=== PATIENT | female | born 1945 | race Caucasian/White ===

== ENCOUNTER 2019-02-16 13:53 | Inpatient (IN) ==
[2019-02-16] MEDS ORDERED: SALINE LOCK IV FLUID XX ONE (13:55)
[2019-02-16] MEDS ORDERED: TYLENOL PO PRN (13:55)
[2019-02-16] MEDS ORDERED: VANCOMYCIN IV PER PHARMACY MISC SCH (14:00)
[2019-02-16] MEDS ORDERED: PRILOSEC PO ONE (14:42)
--- NOTE | 2019-02-16 14:58 | Diag Imaging Result Doc PS360 ---
CHEST-2 VIEWS - 02/16/2019 INDICATION: Pneumonia COMPARISON: 02/15/2019 FINDINGS: Stable dense infiltrate in the lingula and both lower lobes. Stable hyperexpanded lungs indicating COPD. No new infiltrates. Heart size is normal. No pneumothorax or pleural effusion. IMPRESSION: No change from prior. Electronically signed by Zan Anderson 02/16/2019 2:55 PM
--- NOTE | 2019-02-16 15:20 | HISTORY AND PHYSICAL ---
PRIMARY CARE PHYSICIAN: Dr. Cheo Correa. CHIEF COMPLAINT: Cough, congestion, and shortness of breath. HISTORY OF PRESENT ILLNESS: A 73-year-old white female with a complicated past medical history presents for evaluation of the above-mentioned symptoms. Current history of present illness began on 12/14/2018. At that time, patient presented to my office for evaluation and management of cough and congestion. The patient complained of a sore throat, cough productive of a purulent sputum, and purulent/bloody nasal discharge. She had a significant exposure to a friend with influenza type A. Full evaluation was pursued. White blood cell count was noted to be within normal limits, but with a left shift. Influenza screen returned negative. Because of the patient's immunocompromised state, patient was treated with Mucinex DM, Claritin, Tylenol, and doxycycline therapy. Despite this, patient continued to experience symptoms. On 01/05, a chest x-ray was performed which revealed no evidence of acute disease. On 01/12, a CT scan was performed which revealed questionable pneumonia in the left lower lobe and left upper lobe. The patient was placed on Augmentin therapy. Pulmonary consultation with Dr. Poole was arranged. The patient was first seen on 12/20. With review of her symptoms and history, question was raised whether the fluctuating infiltrates were secondary to re-soiling the airway through aspiration or if she had a drug resistant pathogen. She also was noted to have a positive PPD. Sputum cultures were performed. These returned positive for normal meeta only. Repeat evaluation by Dr. Poole on 01/27 revealed no evidence of improvement. Chest x-ray on 01/31 suggested left basilar infiltrates. The patient was taken for bronchoscopy on 02/01. Cultures ultimately grew methicillin sensitive Staph aureus. The patient was treated with dicloxacillin therapy. The patient was re-evaluated by Dr. Poole today. Unfortunately, patient had demonstrated further progression of her illness. Chest x-ray demonstrated worsening pneumonia. She was noted to be hypoxic with an oxygen saturation at rest of 88%. Because of progressive pneumonia despite adequate antibiotic intervention, patient will be admitted to the hospital for full evaluation and management. Of note, patient continues to have a cough productive of a purulent sputum. Since starting dicloxacillin therapy, patient has noted the color of the sputum to change from purulent to a white sputum. She has had intermittent palpitations which she describes is consistent with atrial fibrillation. These have been self limiting. She also notes increasing dyspnea on exertion and congestion. She denies any sick contacts to her knowledge. She denies any fevers or chills. PAST MEDICAL HISTORY: 1. History of acute renal failure in 2010 secondary to nonsteroid anti-inflammatory agents and dehydration. Patient has achieved a full recovery. 2. History of an arterial thrombus of the right lower extremity in 2000 status post embolectomy by Dr. [place]. 3. 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 4. History of right rotator cuff repair by [*]in 2008. 5. Paroxysmal atrial fibrillation. 6. Multiple nevi and seborrheic keratoses. 7. History of Clostridium difficile colitis diagnosed in 2011. 8. Reflux disease. 9. Hyperlipidemia. 10. Iron deficiency anemia. 11. Long-term anticoagulation. 12. Left lower extremity neuropathy, currently untreated. 13. Obstructive sleep apnea treated with CPAP therapy. 14. Osteoarthritis. 15. Overweight. 16. Postmenopausal state. 17. History of a right frontal lobe stroke in 1988. 18. Ulcerative colitis treated with immunosuppressants. 19. Vitamin B12 deficiency. CURRENT MEDICATIONS: 1. Aspirin 81 mg daily. 2. Atorvastatin 40 mg at bedtime. 3. Coenzyme Q10 100 mg daily. 4. Iron sulfate 325 mg twice weekly. 5. Imuran 100 mg daily. 6. Mesalamine 1.2 g 2 tablets daily. 7. Sotalol 120 mg twice daily. 8. Vitamin D3 1000 units daily. 9. Coumadin 5 mg daily except 7.5 mg on Wednesdays. 10. Vitamin B12 1000 mcg daily. ALLERGIES: Patient states she is allergic to tuberculin. SOCIAL HISTORY: Patient previously smoked 1-1/2 packs per day for 26 years. She stopped in 1989. She occasionally uses alcohol. She denies illicit drug use. 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. She exercises intermittently. FAMILY HISTORY: Patient's father passed at age 74 secondary to complications of an acute myocardial infarction. Patient's mother passed at age 90 secondary to complications of Alzheimer's dementia. REVIEW OF SYSTEMS: A 12 point review of systems was performed. Pertinent positives and negatives are noted in history present illness. PHYSICAL EXAMINATION: VITAL SIGNS: Temperature 97.6 degrees, heart rate 73, respirations 18, and blood pressure is 139/69. GENERAL: Well nourished, well developed in no acute distress. HEENT: Normocephalic, atraumatic. Pupils equal, round, react to light. Extraocular muscles intact. Sclerae anicteric. Derma conjunctivae. Oral and nasopharynx clear without exudate. NECK: Supple. No lymphadenopathy. No thyromegaly. No bruits auscultated. CARDIOVASCULAR: Regular rate and rhythm. No significant murmurs, rubs, or gallops. PULMONARY: Crackles at bilateral bases with an occasional wheeze. Adequate air movement. ABDOMEN: Soft, nontender, and nondistended. Positive bowel sounds. EXTREMITIES: Moves all extremities well. No significant clubbing, cyanosis, or edema. NEUROLOGIC: Cranial nerves 2-12 grossly intact. Motor and sensory grossly intact. PSYCHOLOGIC: Examination is appropriate. LABORATORY DATA: Pending at the time of admission. ASSESSMENT AND PLAN: A 73-year-old white female with a very complicated past medical history presents for evaluation of persistent pneumonia. In the setting of an immunocompromised host and adequate outpatient antibiotic intervention, I feel inpatient treatment is most appropriate. We will aggressively intervene with the assistance of a pulmonary consultation. PLAN: 1. Admit to General Medicine. 2. Persistent pneumonia in immunocompromise host-As described above, patient is currently treated with Imuran for her underlying ulcerative colitis. Bronchoscopy cultures grew methicillin Staph aureus. Despite treatment with dicloxacillin therapy, patient has had progression of her disease. We will check sputum cultures and blood cultures. The patient will be placed on broad-spectrum antibiotics in the form of Zosyn and vancomycin therapy. We will encourage aspiration precautions and incentive spirometry. We will start IV steroids and bronchodilators. We will follow patient's clinical course very closely and adjust as necessary. 3. Hypoxia-This likely is a consequence of her underlying pneumonia. We will treat as described above. I am also concerned that bronchospasm may be contributing. We will add steroids and bronchodilators as noted. As above, we will encourage incentive spirometry and aspiration precautions. 4. Ulcerative colitis-Patient is treated with Imuran and mesalamine therapy. We will continue each of these. As above, we will remain aware that Imuran is likely contributing to her immunocompromised state. 5. History of C. Diff colitis-We will remain aware in the setting of antibiotic intervention. At this point, the benefits of antibiotics outweigh the risk. 6. Reflux disease-We will initiate omeprazole therapy. As above, we will encourage aspiration precautions. Certainly chronic aspiration could be contributing to her condition. 7. Hyperlipidemia - We will continue atorvastatin therapy. 8. Long-term anticoagulation-This is secondary to history of arterial thrombus and paroxysmal atrial fibrillation. We will continue Coumadin therapy. 9. Atrial fibrillation-We will follow patient on telemetry. 10. Fluid, electrolytes, and nutrition. We will monitor electrolytes. Saline lock IV. Cardiac prudent diet. 11. Prophylaxis. Patient will be continued on Coumadin therapy. cc: Cheo Correa MD
[2019-02-16] MEDS: ZOSYN 3.375 GM in NS 50 ML IV SCH ×2 (15:53→21:21)
[2019-02-16] MEDS: SOLU-MEDROL IV SCH ×2 (15:54→23:41)
[2019-02-16] MEDS: ATROVENT NEB INH SCH ×3 (16:09→22:39)
[2019-02-16] MEDS: ALBUTEROL NEB INH SCH ×3 (16:10→22:39)
[2019-02-16 18:38] LABS: BASO# 0.05 X1000 (0.0-0.2); BASO% 0.4 % (0.0-0.8); EOS# 0.32 X1000 (0.0-0.7); EOS% 2.9 % (0.0-10.0); HEMATOCRIT 34.9 % (37.0-47.0); HEMOGLOBIN 10.8 g/dL (12.0-16.0); IMM GRAN# 0.06 X1000 (0.0-0.04); IMM GRAN% 0.5 % (0.0-0.5); LYMPH% 3.6 % (20.5-51.1); MCH 31.7 PG (27-31); MCHC 30.9 g/dL (33-37); MCV 102.3 FL (81-99); MONO# 0.27 X1000 (0.11-0.59); MONO% 2.4 % (1.7-9.3); MPV 8.6 FL (7.4-10.4); NEUT# 10.11 X1000 (1.4-6.5); NEUT% 90.2 % (42.2-75.2); PLT 598 X1000 (130-400); RBC 3.41 XMIL (4.2-5.4); RDW 13.5 % (11.5-14.5); WBC 11.21 X1000 (4.8-10.8)
[2019-02-16 18:47] LABS: INR 2.63; PROTIME 28.8 Seconds (11.0-16.0)
[2019-02-16 18:49] LABS: AGAP 12; ALBUMIN 3.2 g/dL (3.5-5.0); ALKALINE PHOSPHATASE 88 U/L (32-104); BUN 14 mg/dL (8-22); CALCIUM 9.2 mg/dL (8.8-10.2); CHLORIDE 99 mmol/L (98-107); COSMO 277; CREATININE 0.9 mg/dL (0.5-0.9); ESTIMATED GFR > 60; GLUCOSE 154 mg/dL (70-104); GOT 41 U/L (10-30); GPT 44 U/L (10-36); POTASSIUM 4.2 mmol/L (3.5-5.1); SODIUM 137 mmol/L (136-145); TCO2 26 mmol/L (25-35); TOTAL BILIRUBIN 0.29 mg/dL (0.20-1.00); TOTAL PROTEIN 6.5 g/dL (6.3-8.3)
[2019-02-16 19:39] LABS: EOS 7 % (1-10); LARGE PLATELETS OCCASIONAL; LYMPHS 3 % (21-51); MONO 1 % (1-9); SEGS 89 % (42-75)
[2019-02-16 19:47] LABS: IRON SATURATION 17 %; TIBC 197 ug/dL; TOTAL IRON 33 ug/dL (49-151); UNBOUND IRON 164 ug/dL (112-346)
[2019-02-16] MEDS ORDERED: VANCOMYCIN 1.6 GM in NS 250 ML IV ONE (20:00)
[2019-02-16 20:15] LABS: FERRITIN 1713 ng/mL (13-150)
[2019-02-16] MEDS: BIDEX PO SCH (21:20)
[2019-02-16] MEDS: BETAPACE PO SCH (21:20)
[2019-02-16] MEDS: LIPITOR PO SCH (21:20)
[2019-02-16] MEDS: COUMADIN PO SCH (21:40)
[2019-02-17] MEDS: ZOSYN 3.375 GM in NS 50 ML IV SCH ×4 (02:43→20:22)
[2019-02-17] MEDS: ATROVENT NEB INH SCH ×6 (03:14→23:30)
[2019-02-17] MEDS: ALBUTEROL NEB INH SCH ×6 (03:14→23:30)
[2019-02-17] MEDS: PRILOSEC PO SCH (06:34)
[2019-02-17] MEDS: SOLU-MEDROL IV SCH ×3 (06:35→23:48)
[2019-02-17] MEDS: IMURAN PO SCH (09:17)
[2019-02-17] MEDS: ASPIRIN EC PO SCH (09:18)
[2019-02-17] MEDS: VITAMIN B-12 PO SCH (09:18)
[2019-02-17] MEDS: BETAPACE PO SCH ×2 (09:18→20:56)
[2019-02-17] MEDS: BIDEX PO SCH ×2 (09:18→20:57)
[2019-02-17] MEDS: VITAMIN D PO SCH (09:18)
[2019-02-17] MEDS: LIALDA PO SCH (09:22)
[2019-02-17] MEDS: HUMALOG SUBQ SCH ×2 (15:21→23:16)
[2019-02-17] MEDS: LIPITOR PO SCH (20:56)
[2019-02-17] MEDS: VANCOMYCIN 1.2 GM in NS 250 ML IV SCH (20:56)
[2019-02-17] MEDS ORDERED: COUMADIN PO SCH (21:00)
--- NOTE | 2019-02-18 00:53 | PROGRESS NOTE ---
DATE: 02/17/2019 SUBJECTIVE: Over the course of the first 24 hours, patient has achieved stabilization of her condition. She continues to have cough, congestion, and shortness of breath, although this is largely unchanged from yesterday. Thus far, she has tolerated Solu-Medrol, Zosyn, vancomycin, and bronchodilators. She denies fevers, chills, nausea and vomiting. OBJECTIVE: Vital signs: T-max 98.2 degrees, heart rate 54 to 65, respirations 18 to 29, blood pressure 108 to 129/38 to 60. General: Well nourished, well developed, no acute distress. Cardiovascular: Regular rate and rhythm. No significant murmurs, rubs, or gallops. Pulmonary: Minimally crackles at bilateral bases. Adequate air movement. Abdomen: Soft, nontender, nondistended. Positive bowel sounds. Extremities: Moves all extremities well. No significant clubbing, cyanosis, or edema. Dermatologic: Reveals no evidence of rash. LABORATORY DATA: White blood cell count 11.21 hemoglobin 10.8, hematocrit 34.9, platelet count 598,000. PT 28.8, INR is 2.63. Sodium 137, potassium 4.2, chloride 99, bicarb 26, BUN 14, creatinine 0.9. Glucose 154, calcium 9.2, total bilirubin 0.29, total protein 6.5, albumin 3.2, alkaline phosphatase 88, AST 41, ALT 44, total iron 33, TIBC 197, ferritin 1713. B12 greater than 2000. Folate 17.1. Sedimentation rate 121. CRP 46.82. ASSESSMENT AND PLAN: 1. Persistent pneumonia in an immunocompromised host -- previous bronchoscopy culture returned positive for methicillin-sensitive Staphylococcus aureus. Laboratory data, thus far, has suggested significant elevation in her sedimentation rate and CRP, suggesting the possibility of an underlying inflammatory process. For now, we will continue broad-spectrum antibiotics. We will continue IV steroids and bronchodilators. We will follow blood and sputum cultures. I appreciate Dr. Poole's consultation. 2. Hypoxia -- we will continue patient on oxygen per protocol. 3. Ulcerative colitis -- patient is treated with Imuran and mesalamine therapy. We will remain aware. Imuran is creating an immunocompromised state. 4. History of Clostridium difficile colitis -- we will remain aware in the setting of antibiotic intervention. 5. Reflux disease -- omeprazole was added yesterday. We will continue aspiration precautions. 6. Hyperlipidemia -- we will continue patient on atorvastatin therapy. 7. Anticoagulation -- we will continue patient on Coumadin therapy. 8. Atrial fibrillation -- we will follow patient with telemetry. 9. Disposition -- at this point, patient continues to require alf care in a hospital setting. We will plan discharge home once appropriate. cc: Cheo Correa MD
--- NOTE | 2019-02-18 01:23 | PULMONOLOGY CONSULTATION ---
DATE: 02/17/2019 REASON FOR CONSULTATION: Pneumonia. HISTORY OF PRESENT ILLNESS: Ms Dye is a 73-year-old white female with history of ulcerative colitis who is on chronic immunosuppression. The patient has had difficulty with fluctuating pulmonary infiltrates. The patient was evaluated in my clinic and did undergo a bronchoscopy which revealed diffuse cobblestoning of the trachea and bronchial tree. No biopsies were performed due to chronic anticoagulation. Subsequent cultures revealed methicillin-sensitive Staphylococcus aureus and she was initiated on dicloxacillin. Despite a week's course of antibiotics, her chest x-ray appeared worse. She was hypoxemic on presentation. She has increased cough with increased sputum production. She reports she has been taking her medications. She has noted nocturnal reflux to the point that it woke her up in the evening. She has previously used a wedge for reflux, but no longer uses it due to back pain. She does attempt to sleep on 2 pillows. She does eat small meals at supper and she does eat early, but continues to reflux. PAST MEDICAL HISTORY: 1. Ulcerative colitis. 2. History of C difficile colitis. 3. Atrial fibrillation. 4. History of arterial thrombosis requiring embolectomy. 5. History of gastroesophageal reflux disease. 6. History of C difficile colitis. 7. Obstructive sleep apnea. 8. History of stroke. SOCIAL HISTORY: The patient has a 50 pack-year history for tobacco. She has not smoked for several years. No alcohol use. 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 REVIEW OF SYSTEMS: As noted in the HPI. PHYSICAL EXAMINATION: General: Reveals a well-developed, well-nourished female who appears comfortable and in no distress. Vital signs: She has been afebrile during this hospitalization. BP 118/48, heart rate 62, respiratory rate 20, oxygen saturation 91% on 2 L per nasal cannula. HEENT: Pupils are equal and reactive. Oropharynx appears clear. Neck: Supple. Chest: Reveals coarse rhonchi predominantly in the lung bases. Cardiac: S1, S2. Abdomen: Soft. Extremities: Without edema. LABORATORIES: Sputum culture is currently growing normal meeta. Chest x-ray reveals dense bibasilar infiltrates. White blood count 11.21, hemoglobin 10.8. Sedimentation rate 122. IMPRESSION: A 73-year-old with immunosuppression, worsening bilateral infiltrates, acute hypoxemic respiratory failure, gastroesophageal reflux, with methicillin-sensitive Staphylococcus aureus identified on bronchoscopy. The patient radiographically appears worse than she did prior to her bronchoscopy and the initiation of antibiotics. With her history, I suspect that she is having some esophageal dysfunction and likely has had an aspiration event. I suspect this sedimentation rate is related to her severe bilateral pneumonia, although other etiologies will be entertained if it does not improve as expected. At this juncture, would utilize broad-spectrum antibiotics. I would like to also pursue a modified barium swallow. I do not have a strong belief that she will have direct aspiration, but I would like to evaluate her swallowing mechanism and her esophagus at the same time. RECOMMENDATIONS: 1. Continue broad-spectrum antibiotics. 2. Continue bronchial hygiene. 3. Continue reflux precautions. 4. Modified barium swallow. 5. Additional recommendations pending hospital course. cc: MD Cheo Allen MD
[2019-02-18] MEDS: ZOSYN 3.375 GM in NS 50 ML IV SCH ×4 (01:28→20:23)
[2019-02-18] MEDS: ALBUTEROL NEB INH SCH ×6 (03:29→23:02)
[2019-02-18] MEDS: ATROVENT NEB INH SCH ×6 (03:29→23:02)
[2019-02-18 05:32] LABS: INR 1.85; PROTIME 21.7 Seconds (11.0-16.0)
[2019-02-18] MEDS: SOLU-MEDROL IV SCH ×3 (06:04→22:53)
[2019-02-18] MEDS: PRILOSEC PO SCH (06:05)
--- NOTE | 2019-02-18 11:20 | Diag Imaging Result Doc PS360 ---
EXAM: BA SWALLOW W/VIDEO SPEECH THER INDICATION: aspiration TECHNIQUE: COMPARISON: None. FINDINGS: Upon swallowing thin liquid and pudding consistency barium, there was an extrinsic filling defect at the posterior aspect of the upper esophagus consistent with cricopharyngeus spasm. No aspiration or airway penetration is appreciated. There were a few mild tertiary contractions on limited images of the distal esophagus suggesting mild distal esophageal dysmotility. IMPRESSION: 1.Cricopharyngeus achalasia. 2.Minimal distal esophageal tertiary contractions suggesting very mild distal dysmotility. Electronically signed by Russ Davidson 02/18/2019 11:18 AM
[2019-02-18] MEDS: HUMALOG SUBQ SCH ×3 (11:50→21:53)
[2019-02-18] MEDS: ASPIRIN EC PO SCH (15:26)
[2019-02-18] MEDS: BIDEX PO SCH ×2 (15:27→20:23)
[2019-02-18] MEDS: BETAPACE PO SCH ×2 (15:27→20:23)
[2019-02-18] MEDS: FERROUS SULFATE PO SCH (15:28)
[2019-02-18] MEDS: COENZYME Q10 PO SCH (15:28)
[2019-02-18] MEDS: IMURAN PO SCH (15:29)
[2019-02-18] MEDS: LIALDA PO SCH (15:29)
[2019-02-18] MEDS: VITAMIN B-12 PO SCH (15:29)
[2019-02-18] MEDS: VITAMIN D PO SCH (15:30)
--- NOTE | 2019-02-18 20:04 | PROGRESS NOTE ---
DATE: 02/18/2019 SUBJECTIVE: Upon my arrival this morning, overall patient was feeling modestly improved. She noted decreasing shortness of breath, cough, and congestion. Through the day, patient states she did reasonably well. She was noted to have a decrease in oxygen saturation. Oxygen therapy was resumed. She continues to feel better than admission. She continues to have some fatigue as well as cough. Modified barium swallow was performed today revealing cricopharyngeal achalasia, minimal distal esophageal tertiary contractions suggesting very mild distal dysmotility. OBJECTIVE: Vital signs: T-max 98.6 degrees, heart rate 51 to 86, respirations 16-18, blood pressure 111-143/50-60. General: Well nourished, well developed, no acute distress. Cardiovascular: Regular rate and rhythm. No significant murmurs, rubs, or gallops. Pulmonary: Minimal crackles at bilateral bases. Adequate air movement. Abdomen: Soft, nontender, nondistended. Positive bowel sounds. Extremities: Moves all extremities well. No significant clubbing, cyanosis, or edema. Dermatologic: Evaluation reveals no evidence of rash. LABORATORY DATA: PT 21.7. INR is 1.85. ASSESSMENT AND PLAN: 1. Persistent pneumonia in an immunocompromised host--Previous bronchoscopy culture returned positive for methicillin-sensitive Staphylococcus aureus. Current sputum cultures are negative. In the setting of cricopharyngeal achalasia and esophageal dysmotility, aspiration pneumonia is high on the differential. Additionally, with an elevated sedimentation rate and CRP, the possibility of an underlying autoimmune/inflammatory process is to be considered. We will continue broad-spectrum antibiotics, IV steroids, and bronchodilators. We will encourage incentive spirometry. I appreciate Dr. Poole's consultation. 2. Cricopharyngeal achalasia/minimal distal esophageal tertiary contractions suggesting mild distal dysmotility--At this point, we will continue aspiration precautions and a proton pump inhibitor. We will consider whether Gastroenterology consultation is appropriate as an outpatient. 3. Hypoxia--We will continue patient on oxygen per protocol. 4. Ulcerative colitis--Because patient is treated with Imuran and mesalamine therapy, she is considered an immunocompromised host. We will treat underlying infection aggressively. Ulcerative colitis symptoms are stable. 5. History of Clostridium difficile colitis--We will remain aware. In the setting of broad- spectrum antibiotics. 6. Reflux disease--We will continue omeprazole therapy. 7. Hyperlipidemia--We will continue patient on atorvastatin therapy. 8. Anticoagulation--INR is slightly subtherapeutic today. We will continue Coumadin for now. We will consider adjusting medications depending on future INR evaluations. 9. Atrial fibrillation--We will continue patient on telemetry. She is rate controlled. 10. Disposition--At this point, patient continues to require nursing home care in the hospital setting. We will plan discharge home once appropriate. cc: Cheo Correa MD
[2019-02-18] MEDS: VANCOMYCIN 1.2 GM in NS 250 ML IV SCH (20:23)
[2019-02-18] MEDS: COUMADIN PO SCH (20:23)
[2019-02-18] MEDS: LIPITOR PO SCH (20:24)
--- NOTE | 2019-02-18 21:11 | PULMONOLOGY PROGRESS NOTE ---
DATE: 02/18/2019 SUBJECTIVE: The patient is awake and alert. She reports she feels better today. Her cough and sputum production have declined. OBJECTIVE: Vital Signs: The patient has been afebrile for the last 24 hours. Blood pressure 123/60, heart rate 54, respiratory rate 18, oxygen saturation 96% on 2 L per nasal cannula. HEENT: Pupils are equal and reactive. Oropharynx appears clear. Neck: Supple. Chest: Crackles in both lung bases. Cardiac: S1, S2. Abdomen: Soft, with good bowel sounds present. LABORATORIES: Modified barium swallow reveals cricopharyngeal achalasia. Microbiology reveals no new data. IMPRESSION: A 73-year-old with: 1. Mild acute hypoxemic respiratory failure. 2. Bibasilar pneumonia, most consistent with aspiration. The patient has nocturnal reflux symptoms. 3. Cricopharyngeal achalasia with a globus sensation while eating. PLAN: 1. Continue current antibiotic regimen 2. Continue bronchial hygiene. 3. Continue safe swallowing practices. 4. Anticipate the need for outpatient GI evaluation for her cricopharyngeal achalasia. 5. PA/LAT CXR on 02/20 cc: MD Cheo Allen MD MTDKenneth
[2019-02-19] MEDS: ZOSYN 3.375 GM in NS 50 ML IV SCH ×4 (01:17→21:21)
[2019-02-19] MEDS: ALBUTEROL NEB INH SCH ×6 (03:30→23:40)
[2019-02-19] MEDS: ATROVENT NEB INH SCH ×6 (03:30→23:40)
[2019-02-19 05:52] LABS: INR 1.62; PROTIME 19.6 Seconds (11.0-16.0)
[2019-02-19] MEDS: HUMALOG SUBQ SCH ×3 (06:00→21:29)
[2019-02-19] MEDS: PRILOSEC PO SCH (06:05)
[2019-02-19] MEDS: SOLU-MEDROL IV SCH ×2 (06:05→16:16)
[2019-02-19] MEDS: BETAPACE PO SCH ×2 (09:15→21:21)
[2019-02-19] MEDS: VITAMIN B-12 PO SCH (09:15)
[2019-02-19] MEDS: IMURAN PO SCH (09:15)
[2019-02-19] MEDS: ASPIRIN EC PO SCH (09:15)
[2019-02-19] MEDS: LIALDA PO SCH (09:16)
[2019-02-19] MEDS: BIDEX PO SCH ×2 (09:16→21:21)
[2019-02-19] MEDS: VITAMIN D PO SCH (09:26)
--- NOTE | 2019-02-19 17:38 | PROGRESS NOTE ---
DATE: 02/19/2019 SUBJECTIVE: Upon arrival this morning, patient states overall she was feeling reasonably well. She did require oxygen therapy to be resumed to maintain oxygen saturations above 90%. P.o. intake remains adequate. She continues to have some cough and congestion, although this is improving. Throughout the day, patient continued to do reasonably well. Upon arrival this evening, patient continued to require oxygen supplementation. She was eating dinner in bed. She denied any fevers, chills, nausea, vomiting, or chest discomfort. OBJECTIVE: T-max 98.5 degrees, heart rate 49 to 62, respirations 14 to 17, blood pressure 81 to 136 over 48 to 66.General: Well nourished, well developed, in no acute distress. Cardiovascular: Regular rate and rhythm. No significant murmurs, rubs, or gallops. Pulmonary: Minimal crackles at bilateral bases. Adequate air movement. Abdomen: Soft, nontender, nondistended. Positive bowel sounds. Extremities: Moves all extremities well. No significant clubbing, cyanosis, or edema. Dermatologic: Evaluation reveals no evidence of rash. LABORATORY DATA: PT 19.6, INR is 1.62. ASSESSMENT AND PLAN: 1. Persistent pneumonia in an immunocompromised host-previous bronchoscopy culture returned positive for methicillin sensitive staph aureus. Patient failed outpatient management. Upon admission, sputum cultures were performed. These have returned with only normal meeta. In the setting of cricopharyngeal achalasia and esophageal dysmotility, I am concerned this may also represent an underlying aspiration. We will continue patient on broad-spectrum antibiotics including Zosyn and vancomycin therapy. We will continue IV steroids and bronchodilators. We will encourage incentive spirometry and aspiration precautions. We will follow patient's clinical course closely. We will check a chest x-ray in the a.m. 2. Cricopharyngeal achalasia/minimal distal esophageal tertiary contractions suggesting mild distal dysmotility-this likely is contributing, if it is not the primary source of patient's persistent pneumonia. We will continue aspiration precautions. As an outpatient, patient likely will need gastroenterology consultation and possible lower esophageal dilation. 3. Hypoxemia-we will continue patient on oxygen per protocol. We will treat persistent/recurrent pneumonia as described above. 4. Ulcerative colitis-symptoms are controlled with Imuran and mesalamine therapy. We will remain aware. This does place the patient in immunocompromised state. We will continue aggressive management as above. 5. History of Clostridium difficile colitis-we will remain aware in the setting of broad-spectrum antibiotics. She currently has no GI symptoms. 6. Reflux disease-we will continue omeprazole therapy. 7. Hyperlipidemia-we will continue patient on atorvastatin therapy. 8. Anticoagulation-patient's INR is slightly subtherapeutic. We will adjust Coumadin dosing. 9. Atrial fibrillation-we will continue patient on telemetry. She is rate controlled. 10. Disposition-at this point, patient continues to require fdc care in the hospital setting. We will plan discharge home once appropriate. cc: Cheo Correa MD
[2019-02-19] MEDS: LIPITOR PO SCH (21:22)
[2019-02-19] MEDS: COUMADIN PO SCH (21:22)
[2019-02-19] MEDS: VANCOMYCIN 1.6 GM in NS 250 ML IV SCH (21:26)
[2019-02-20] MEDS: SOLU-MEDROL IV SCH ×4 (00:20→22:20)
[2019-02-20] MEDS: ATROVENT NEB INH SCH ×6 (03:19→23:14)
[2019-02-20] MEDS: ALBUTEROL NEB INH SCH ×6 (03:19→23:14)
[2019-02-20] MEDS: ZOSYN 3.375 GM in NS 50 ML IV SCH ×4 (04:12→21:22)
[2019-02-20 05:50] LABS: INR 1.52; PROTIME 18.6 Seconds (11.0-16.0)
[2019-02-20 06:09] LABS: BASO# 0.02 X1000 (0.0-0.2); BASO% 0.2 % (0.0-0.8); EOS# 0.02 X1000 (0.0-0.7); EOS% 0.2 % (0.0-10.0); HEMATOCRIT 39.2 % (37.0-47.0); IMM GRAN# 0.02 X1000 (0.0-0.04); IMM GRAN% 0.2 % (0.0-0.5); LYMPH# 0.37 X1000 (1.2-3.4); LYMPH% 3.8 % (20.5-51.1); MCHC 30.6 g/dL (33-37); MCV 104.5 FL (81-99); MONO# 0.31 X1000 (0.11-0.59); MONO% 3.2 % (1.7-9.3); MPV 8.5 FL (7.4-10.4); NEUT# 8.96 X1000 (1.4-6.5); NEUT% 92.4 % (42.2-75.2); PLT 772 X1000 (130-400); RBC 3.75 XMIL (4.2-5.4); RDW 13.8 % (11.5-14.5)
[2019-02-20 06:15] LABS: ALB/GLOB RATIO 0.8; ALBUMIN 3.3 g/dL (3.5-5.0); C REACTIVE PROT QUANT 5.85 mg/L (0.00-5.00); CALCIUM 10.4 mg/dL (8.8-10.2); CREATININE 1.2 mg/dL (0.5-0.9); POTASSIUM 4.8 mmol/L (3.5-5.1); TOTAL BILIRUBIN 0.32 mg/dL (0.20-1.00); TOTAL PROTEIN 7.7 g/dL (6.3-8.3)
[2019-02-20] MEDS: HUMALOG SUBQ SCH ×4 (06:15→21:23)
[2019-02-20] MEDS: PRILOSEC PO SCH (06:23)
[2019-02-20 06:45] LABS: LYMPHS 4 % (21-51); SEGS 96 % (42-75)
[2019-02-20 07:02] LABS: SED RATE 87 mm/hr (0-20)
--- NOTE | 2019-02-20 08:12 | PROGRESS NOTE ---
DATE: 02/20/2019 SUBJECTIVE: The patient is sitting in bed, getting a breathing treatment. She really has no complaints other than the fact she was stuck 7 times to restart an IV last night. She has been up and walking in the chow[place]. She is eating normally and not having any extreme swallowing difficulty at the present time. OBJECTIVE: Vital Signs: 97.3 degrees, pulse rate 50, blood pressure 122/53. General: The patient is alert, oriented, conversive and appropriate. Lungs: In listening to the patient's lungs, she has very faint crackles at the end of inspiration on both lungs, more audible posteriorly and inferiorly. There is no wheezing. She has reasonable air movement. Cardiovascular: Is regular. Neuropsych: The patient is operating at a baseline level. LABORATORY: White cell count is 9.7, hemoglobin 12.0, hematocrit 39.2. Sedimentation rate is 87, BUN 19, creatinine 1.2. Blood sugars 120. Liver function tests are grossly normal. It is noted the C-reactive protein is declined from 46.8 to 5.85. ASSESSMENT AND PLAN: 1. 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 The patient is on appropriate antibiotics and laboratory parameters seem to be improving. She is in no respiratory distress at all. The patient will continue on broad- spectrum antibiotics and steroids with bronchodilators. Chest x-ray is pending at the time of this dictation. 2. 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 We will continue aspiration precautions. Outpatient GI workup with EGD and dilation are likely. 3. Hypoxemia. The patient was on oxygen yesterday for most of the day for O2 sats less than 90%. We will see how it goes today. 4. Ulcerative colitis. Aware. 5. History of C. diff colitis. 6. Gastroesophageal reflux disease. The patient remains on omeprazole. 7. Hyperlipidemia, aware, on appropriate therapy. 8. The patient will continue Coumadin. We will have periodic checks of her INR. 9. Atrial fibrillation, aware. She remains rate controlled with actual bradycardic rates this morning. 10. We will continue treatment and monitor progress clinically with occasional lab and chest x-ray to confirm our findings. cc: MD Cheo Antonio MD MTDD
--- NOTE | 2019-02-20 08:50 | Diag Imaging Result Doc PS360 ---
EXAM: CHEST-2 VIEWS HISTORY: abnormal exam TECHNIQUE: Chest two views COMPARISON: 02/16/2019 FINDINGS: The lungs are hyperexpanded. Increased AP diameter to the chest. The pulmonary vessels are small. There are bilateral basilar infiltrates, left greater than right. Tiny left effusion. No cardiomegaly. IMPRESSION: 1.Basilar infiltrates. Slight interval improvement. 2.Emphysema Electronically signed by Juan David Paul 02/20/2019 8:48 AM
[2019-02-20] MEDS: ASPIRIN EC PO SCH (09:38)
[2019-02-20] MEDS: IMURAN PO SCH (09:38)
[2019-02-20] MEDS: BIDEX PO SCH ×2 (09:38→21:13)
[2019-02-20] MEDS: VITAMIN B-12 PO SCH (09:39)
[2019-02-20] MEDS: COENZYME Q10 PO SCH (09:40)
[2019-02-20] MEDS: BETAPACE PO SCH ×2 (09:40→21:14)
[2019-02-20] MEDS: VITAMIN D PO SCH (09:42)
[2019-02-20] MEDS: LIALDA PO SCH (09:43)
[2019-02-20] MEDS: VANCOMYCIN 1.6 GM in NS 250 ML IV SCH (15:24)
[2019-02-20] MEDS ORDERED: COUMADIN PO SCH (21:00)
[2019-02-20] MEDS: LIPITOR PO SCH (21:14)
[2019-02-21] MEDS: ATROVENT NEB INH SCH ×6 (03:45→23:23)
[2019-02-21] MEDS: ALBUTEROL NEB INH SCH ×6 (03:45→23:23)
[2019-02-21] MEDS: ZOSYN 3.375 GM in NS 50 ML IV SCH ×4 (04:49→23:56)
[2019-02-21 05:42] LABS: INR 1.51; PROTIME 18.5 Seconds (11.0-16.0)
[2019-02-21] MEDS: SOLU-MEDROL IV SCH ×3 (05:52→23:56)
[2019-02-21] MEDS: HUMALOG SUBQ SCH ×4 (06:27→21:31)
[2019-02-21] MEDS: PRILOSEC PO SCH (06:27)
[2019-02-21] MEDS: LIALDA PO SCH (08:43)
[2019-02-21] MEDS: BIDEX PO SCH ×2 (08:43→21:30)
[2019-02-21] MEDS: IMURAN PO SCH (08:43)
[2019-02-21] MEDS: VITAMIN B-12 PO SCH (08:43)
[2019-02-21] MEDS: BETAPACE PO SCH ×2 (08:44→21:30)
[2019-02-21] MEDS: VITAMIN D PO SCH (08:44)
[2019-02-21] MEDS: ASPIRIN EC PO SCH (08:44)
--- NOTE | 2019-02-21 10:33 | PROGRESS NOTE ---
DATE: 02/21/2019 SUBJECTIVE: The patient has no complaints. She was coming out of the restroom at the time when I made rounds. She states that she has been walking in the [place]ow[place] and gets somewhat short of breath when traveling any distance. She wore her oxygen through most of the day and had CPAP at night. She continues on q.4 hours albuterol treatments and IV steroids as well as broad-spectrum antibiotics. OBJECTIVE: Vital Signs: 97.6, 56, 15, 137/57, 93% saturated on room air. PHYSICAL EXAMINATION: General: The patient is alert, oriented, conversive and appropriate. Neck: Reveals no JVD or bruits. Lungs: Clear with the exception of a faint tiny crackle at the extreme and of the right base. The left side is clear. She has good air movement. No wheezing. Cardiovascular: Regular at 56 beats per minute. Extremities: Show no significant peripheral edema. LABORATORY: Today's labs showed an INR of 1.51, glucose 121. Random vancomycin level of 19.90. ASSESSMENT AND PLAN: 1. The patient continues on broad-spectrum antibiotics, IV steroids and aggressive pulmonary toilet. Repeat chest x-ray from yesterday showed mild improvement and clinically she is improved. 2. The patient has diagnosed cricopharyngeal achalasia with possible distal stricture. Outpatient consultation will be set up to address this problem. The patient has no professed dysphagia at present. 3. Hypoxemia. The patient was using oxygen per protocol. 4. Ulcerative colitis, stable. She is on azathioprine and mesalamine. 5. History of Clostridium difficile colitis, aware of symptoms are present. 6. Reflux. We will continue omeprazole therapy. Otherwise stable. 7. Hyperlipidemia aware. 8. The patient is on chronic anticoagulation for atrial fibrillation. INR slightly subtherapeutic. She is also on aspirin. 9. Atrial fibrillation. The patient is rate controlled and appears to be in sinus rhythm or slow ventricular response at the present time. DISPOSITION: It still remains to taper the patient off of her steroids to a degree and switch to some type of oral antibiotic. At that point, the patient should be able to go home. We are projecting early to mid week discharge. cc: MD Cheo Antonio MD
[2019-02-21] MEDS: VANCOMYCIN 1.3 GM in NS 250 ML IV SCH (12:18)
[2019-02-21] MEDS: COUMADIN PO SCH (21:29)
[2019-02-21] MEDS: LIPITOR PO SCH (21:30)
[2019-02-22] MEDS: ALBUTEROL NEB INH SCH ×8 (03:02→23:32)
[2019-02-22] MEDS: ATROVENT NEB INH SCH ×8 (03:02→23:32)
[2019-02-22 05:42] LABS: INR 1.38; PROTIME 17.2 Seconds (11.0-16.0)
[2019-02-22] MEDS: ZOSYN 3.375 GM in NS 50 ML IV SCH ×4 (05:57→20:11)
[2019-02-22] MEDS: HUMALOG SUBQ SCH ×3 (06:18→22:44)
[2019-02-22] MEDS: PRILOSEC PO SCH (06:53)
[2019-02-22] MEDS: SOLU-MEDROL IV SCH ×3 (06:54→23:10)
[2019-02-22] MEDS: VANCOMYCIN 1.3 GM in NS 250 ML IV SCH (07:59)
--- NOTE | 2019-02-22 08:14 | Diag Imaging Result Doc PS360 ---
EXAM: CHEST-2 VIEWS HISTORY: abnormal exam TECHNIQUE: Chest two views COMPARISON: 02/20/2019 FINDINGS: The lungs are hyperexpanded. The heart is not enlarged. The vessels are not distended. Persistent basilar infiltrates most pronounced in the left lung base.. No pleural effusions. IMPRESSION: No significant interval change Electronically signed by Juan David Paul 02/22/2019 8:12 AM
[2019-02-22] MEDS: ASPIRIN EC PO SCH (08:42)
[2019-02-22] MEDS: VITAMIN B-12 PO SCH (08:42)
[2019-02-22] MEDS: COENZYME Q10 PO SCH (08:42)
[2019-02-22] MEDS: VITAMIN D PO SCH (08:42)
[2019-02-22] MEDS: BIDEX PO SCH ×2 (08:42→20:11)
[2019-02-22] MEDS: IMURAN PO SCH (08:42)
[2019-02-22] MEDS: LIALDA PO SCH (08:42)
[2019-02-22] MEDS: BETAPACE PO SCH ×2 (08:43→20:11)
[2019-02-22] MEDS: FERROUS SULFATE PO SCH (14:55)
[2019-02-22] MEDS: LIPITOR PO SCH (20:12)
[2019-02-22] MEDS: COUMADIN PO SCH (20:12)
[2019-02-22] MEDS ORDERED: DESYREL PO SCH (21:00)
--- NOTE | 2019-02-22 21:02 | PROGRESS NOTE ---
DATE: 02/22/2019 SUBJECTIVE: The events of the weekend were reviewed. In summary, patient was continued on IV antibiotics, IV steroids, and bronchodilators. Throughout the weekend, her condition continued to very slowly improve. This morning upon my arrival, patient noted a difficult evening. She stated she felt poorly. She noted a sensation of "smothering" frequently. Throughout the day today, patient demonstrated improvement in her clinical condition. This evening, patient is sitting upright in bed. She states her p.o. intake has been adequate. She denies fevers, chills, nausea, vomiting, or chest discomfort. She continues to have shortness of breath with minimal ambulation. OBJECTIVE: T-max 98.4 degrees, heart rate 56 to 73, respirations 15 to 19, blood pressure 96 to 128 over 49 to 75.General: Well nourished, well developed, no acute distress. Cardiovascular: Regular rate and rhythm. No significant murmurs, rubs, or gallops. Pulmonary: Crackles at bilateral bases. Abdomen: Soft, nontender, nondistended. Positive bowel sounds. Extremities: Moves all extremities well. No significant clubbing, cyanosis, or edema. Dermatologic: Evaluation reveals no evidence of rash. LABORATORY DATA: PT 17.2, INR is 1.38. ASSESSMENT AND PLAN: 1. Persistent pneumonia in an immunocompromised host-as described on previous notes, bronchoscopy recently returned positive for methicillin sensitive Staphylococcus aureus. Unfortunately, patient failed outpatient management. Since admission, patient has been treated with Zosyn, vancomycin, aspiration precautions, steroids, and bronchodilators. Culture while hospitalized returned with only normal meeta. A modified barium swallow suggested cricopharyngeal achalasia and esophageal dysmotility. I discussed this case in detail with Dr. Poole. At this point, highest on the differential diagnosis is that of chronic aspiration. Also of concern is that of an inflammatory process as patient does have an additional autoimmune disease. We will continue patient on Zosyn, vancomycin, IV steroids and bronchodilators for now. As her condition is slowly improving, we likely will be able to discharge patient home in the near future. For now, we will continue to encourage incentive spirometry and aspiration precautions. 2. Cricopharyngeal achalasia/minimal distal esophageal tertiary contractions suggesting mild distal dysmotility-we will plan outpatient consultation with Gastroenterology once her pulmonary condition has improved. We will encourage aspiration precautions as noted. 3. Hypoxemia-we will continue patient on oxygen per protocol. Oxygenation is slowly improving. 4. Ulcerative colitis-patient's symptoms are controlled with Imuran and mesalamine therapy. We will remain aware that this places patient as an immunocompromised host. We will continue aggressively manage her acute illness as described above. 5. History of Clostridium difficile colitis-we will remain aware in the setting of broad-spectrum antibiotics. At present time, she denies significant gastrointestinal symptoms. 6. Reflux disease-we will continue patient on omeprazole therapy. 7. Hyperlipidemia-we will continue patient on atorvastatin therapy. 8. Anticoagulation-patient's INR is slightly subtherapeutic. Her Coumadin dosing was adjusted on Friday. We will recheck an INR in the a.m. We will consider adding Lovenox if necessary. 9. Atrial fibrillation-we will continue patient on telemetry. She is rate controlled. 10. Disposition-at this point, patient continues to require prison care in a hospital setting. We will plan discharge home once appropriate. cc: Cheo Correa MD
[2019-02-23] MEDS: ZOSYN 3.375 GM in NS 50 ML IV SCH (02:08)
[2019-02-23] MEDS: VANCOMYCIN 1.3 GM in NS 250 ML IV SCH ×2 (03:25→03:28)
[2019-02-23] MEDS: ALBUTEROL NEB INH SCH ×2 (03:29→07:57)
[2019-02-23] MEDS: ATROVENT NEB INH SCH ×2 (03:29→07:57)
--- NOTE | 2019-02-23 04:42 | PULMONOLOGY PROGRESS NOTE ---
DATE: 02/22/2019 SUBJECTIVE: The patient is anxious to go home. She is upset that they had difficulty placing an IV catheter. She denies shortness of breath today. OBJECTIVE: Vital Signs: The patient has been afebrile for the last 24 hours. Blood pressure 123/56, heart rate 56, respiratory rate 19, and oxygen saturation 95% on room air. HEENT: Pupils are equal and reactive. Oropharynx appears clear. Neck: Supple. Lungs: Chest reveals occasional rhonchi on deep breath and cough. Cardiac: S1-S2. Abdomen: Soft. Extremities: Without edema. LABORATORIES: No new microbiology data. Chest x-ray reveals infiltrates left greater than right base. These have not changed from 02/20, but have improved compared to 02/16. IMPRESSION: A 73-year-old with the followin. Persistent pneumonia with radiographic improvement. Suspect intermittent aspiration. 2. Cricopharyngeal achalasia with esophageal dysmotility. 3. Hypoxemia which has resolved. 4. Ulcerative colitis on immunosuppression. 5. History of C. Difficile colitis. 6. Dyslipidemia. 7. 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 8. Atrial fibrillation. PLAN: 1. We will discuss case with Dr. Cheo Correa. I believe she could be transitioned to an oral agent. 2. Recommend outpatient evaluation for her cricopharyngeal achalasia. 3. Strongly encourage patient to practice reflux precautions. 4. Additional conditions pending clinical course. cc: MD Cheo Allen MD
[2019-02-23 04:59] LABS: INR 1.41; PROTIME 17.5 Seconds (11.0-16.0)
[2019-02-23] MEDS: PRILOSEC PO SCH (06:01)
[2019-02-23] MEDS: SOLU-MEDROL IV SCH (06:04)
[2019-02-23] MEDS: HUMALOG SUBQ SCH (06:19)
[2019-02-23] MEDS: LIALDA PO SCH (09:17)
[2019-02-23] MEDS: IMURAN PO SCH (09:17)
[2019-02-23] MEDS: ASPIRIN EC PO SCH (09:18)
[2019-02-23] MEDS: BETAPACE PO SCH (09:18)
[2019-02-23] MEDS: VITAMIN D PO SCH (09:18)
[2019-02-23] MEDS: BIDEX PO SCH (09:18)
[2019-02-23] MEDS: VITAMIN B-12 PO SCH (09:18)
[2019-02-23] MEDS ORDERED: PREDNISONE PO ONE (09:19)
[2019-02-23] MEDS: DOXYCYCLINE PO SCH ×2 (10:57→19:22)
[2019-02-23] MEDS: AUGMENTIN PO SCH ×2 (10:57→19:22)
[2019-02-23] MEDS: DUONEB (A & A) INH SCH ×2 (11:25→15:32)
[2019-02-23 17:07] VITALS: BP 119/62
--- NOTE | 2019-02-23 22:01 | DISCHARGE SUMMARY ---
ADMISSION DATE: 02/16/2019 DISCHARGE DATE: 02/23/2019 ADMISSION DIAGNOSIS: 1. Cough. 2. Congestion. 3. Shortness of breath. DISCHARGE DIAGNOSES: 1. Persistent pneumonia in an immunocompromised host, likely secondary to aspiration. 2. Cricopharyngeal achalasia/minimal distal esophageal tertiary contractions suggesting mild distal dysmotility per modified barium swallow. 3. Hypoxia, improved. 4. Ulcerative colitis, present on arrival. 5. History of Clostridium difficile colitis, present on arrival. 6. Reflux disease, present on arrival. 7. Hyperlipidemia, present on arrival. 8. 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 9. Atrial fibrillation, present on arrival. CONSULTATIONS: Dr. Poole with pulmonology was consulted for further evaluation and management of persistent/recurrent pneumonia. PROCEDURES: 1. Chest x-ray was performed on 02/16/2019 which revealed stable dense infiltrate in the lingula and both lower lobes. 2. A chest x-ray was performed on 02/20/2019 which revealed bibasilar infiltrates, slight interval improvement. Emphysema. 3. Chest x-ray was performed on 02/22/2019 which revealed no significant interval change. 4. Modified barium swallow was performed on 02/18/2019 which revealed cricopharyngeus achalasia. Minimal distal esophageal tertiary contractions suggesting very mild distal dysmotility. HISTORY AND PHYSICAL EXAMINATION: See admit note. PHYSICAL EXAMINATION PRIOR TO DISCHARGE: Temperature 98.1 degrees, heart rate 56, respirations 16, blood pressure 119/62, O2 saturation 93% on room air. General: Well nourished, well developed, in no acute distress. Cardiovascular: Regular rate and rhythm. No significant murmurs, rubs, or gallops. Pulmonary: Minimal crackles at bilateral bases. Adequate air movement. Abdomen: Soft, nontender, nondistended. Positive bowel sounds. Extremities: Moves all extremities well. No significant clubbing, cyanosis, or edema. Dermatologic: Evaluation reveals no evidence of rash. LABORATORY DATA: Prior to discharge. PT 17.5, INR is 1.41. HOSPITAL COURSE: The patient was admitted as per history and physical examination. Hospital course per condition is as follows. 1. Persistent/recurrent pneumonia in an immunocompromised host-unfortunately, patient experienced persistent/recurrent symptoms as an outpatient. Ultimately, bronchoscopy culture revealed methicillin sensitive Staph aureus. She was treated with dicloxacillin, but without improvement. The patient was admitted to the hospital secondary to outpatient failure. She was placed on Zosyn, vancomycin, aspiration precautions, steroids, and bronchodilators. Dr. Poole was consulted. The patient experienced a very slow improvement. Because of multiple risk factors, a modified barium swallow was performed. This suggested cricopharyngeal achalasia and esophageal dysmotility. At this point, differential diagnosis remains broad, but the most likely source of her recurrent/persistent pneumonia is that of chronic aspiration. The patient achieved improvement while hospitalized. The patient will be discharged home with strict aspiration precautions, Augmentin, doxycycline, prednisone taper, and as needed ProAir HFA. In the setting of a patient with an underlying autoimmune disorder, I cannot fully rule out inflammatory/autoimmune pulmonary disease. We will follow patient very closely as an outpatient. 2. Cricopharyngeal achalasia/esophageal dysmotility-this was diagnosed per modified barium swallow. As above, we will practice strict aspiration precautions. We will plan gastroenterology consultation and probable distal esophageal dilation as an outpatient. As above, we will remain aware that this likely is contributing to her recurrent aspiration pneumonia. 3. Hypoxemia-upon admission, patient was noted to be hypoxic. With treatment of her underlying condition, she has achieved improvement. We will continue to encourage incentive spirometry as an outpatient. At this point, she does not require oxygen supplementation. 4. Ulcerative colitis-patient remained on Imuran and mesalamine therapy while hospitalized. We will remain aware that this places patient as an immunocompromised host. Patient's symptoms remained controlled while hospitalized. 5. History of Clostridium difficile colitis-we will remain aware in the setting of treating patient with broad-spectrum antibiotics. She denies current gastrointestinal symptoms. 6. Reflux disease-the patient was started on omeprazole therapy while hospitalized. We will continue this as an outpatient. 7. Hyperlipidemia-patient was continued on atorvastatin therapy while hospitalized. 8. Anticoagulation-patient's INR has been slightly subtherapeutic while hospitalized. Coumadin therapy was adjusted. We will continue Coumadin as an outpatient. We will plan to recheck levels on Friday. 9. Atrial fibrillation-the patient is currently treated with sotalol therapy. She has remained in a sinus-generated rhythm while hospitalized. She is anticoagulated as above. DISCHARGE CONDITION: Good. DISPOSITION: Discharge to home. MEDICATIONS: 1. Acetaminophen 650 mg every 6 hours as needed. 2. Augmentin. 875/125 one tablet twice daily for 10 days. 3. Atorvastatin 40 mg at bedtime. 4. Azathioprine 100 mg daily. 5. Vitamin D3 1000 units daily. 6. Vitamin B12 1000 mcg daily. 7. Doxycycline 100 mg twice daily for 10 days. 8. Iron sulfate 325 mg on Tuesdays and Fridays, hold while taking antibiotics. 9. Guaifenesin 400 mg twice daily. 10. Mesalamine 2.4 g daily. 11. Omeprazole 40 mg daily. 12. Sotalol 120 mg twice daily. 13. Trazodone 50 mg at bedtime as needed. 14. Co-Q10 100 mg every other day. 15. Coumadin 5 mg nightly on Friday, and Friday and 7.5 mg nightly on Friday, Friday and Friday. 16. Aspirin 81 mg daily. 17. Zyrtec 10 mg daily. FOLLOWUP: The patient is to follow with me on Friday. Patient is to follow with Dr. Poole in approximately 1 week. cc: Cheo Correa MD
--- NOTE | 2019-02-23 22:02 | PULMONOLOGY PROGRESS NOTE ---
DATE: 02/23/2019 SUBJECTIVE: The patient is awake, alert, and conversant. She is currently being prepared for discharge. She reports she feels significantly better. OBJECTIVE: Vital Signs: The patient has been afebrile for the last 24 hours. Blood pressure 119/62, heart rate 56, respiratory rate 16, oxygen saturation 93% on room air. HEENT: Pupils are equal and reactive. Oropharynx appears clear. Neck: Supple. Chest: Occasional crackles in the lung bases, but no rhonchi. Cardiac: S1, S2. Abdomen: Soft. Extremities: Without edema. IMPRESSION: 73-year-old with: 1. Pneumonia. 2. Cricopharyngeal achalasia. 3. Intermittent aspiration, suspected. 4. Hypoxemic respiratory failure, which has resolved. 5. Ulcerative colitis, on chronic immunosuppression. 6. Dyslipidemia. 7. 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 8. Atrial fibrillation. PLAN: 1. Anticipate discharge home on outpatient antibiotics. 2. Reflux precautions were discussed at length, and the patient will attempt to obtain a wedge, and will eat small meals early in the evening or forego supper. 3. Followup in my clinic in 1 week with a chest x-ray. cc: MD Cheo Allen MD
== END 2019-02-23 20:00 | disposition home or self-care (01) | DRG 178 ==
LOC: DIRADM 13:53 → 1N 14:40
PROVIDERS: ADMIT Internal Medicine; ATTEND Internal Medicine